=== PATIENT | female | born 2000 | race American Indian/Alaskan Native ===

== ENCOUNTER 2021-10-24 00:43 | Emergency (ER) | payer MEDICAID ==
[2021-10-24] MEDS ORDERED: SODIUM CHLORIDE 0.9% 1000 ML 1,000 ML IV ONE (01:47)
[2021-10-24] MEDS ORDERED: diphenhydrAMINE 50 MG/ML VIAL IM ONE (01:47)
[2021-10-24] MEDS ORDERED: HALOPERIDOL LACTATE 5 MG/1 ML INJ IM ONE (01:47)
[2021-10-24 02:19] LABS: Basophils % (Auto) 0.5 % (0.0-1.8); Eosinophils # (Auto) 0.1 K/mm3 (0.0-0.4); Eosinophils % (Auto) 0.7 % (0.0-4.3); Hemoglobin 13.4 gm/dl (10.1-14.3); Lymphocytes # (Auto) 1.3 K/mm3 (1.2-5.4); Lymphocytes % (Auto) 13.8 % (13.4-35.0); Mean Corpuscular HGB Conc 33 % (30-34); Mean Corpuscular Volume 84 fl (79-97); Monocytes # (Auto) 0.3 K/mm3 (0.0-0.8); Platelet Count 226 K/mm3 (140-440); Red Blood Count 4.85 M/mm3 (3.65-5.03); Red Cell Distribution Width 13.9 % (13.2-15.2)
--- NOTE | 2021-10-24 02:25 | Emergency Department Report ---
HPI - General Chief Complaint: Nausea/Vomiting/Diarrhea Time Seen by Provider: 10/24/21 01:32 - HPI HPI: 21-year-old female with history of depression, drug abuse, and IBS presents complaining of chronic abdominal pain and conditional suicidal ideation. The patient states "if someone cannot fix this I am going to kill myself" when I asked whether she had a desire to end her own life generally she said no. She also says she has had 6 hours of nausea and vomiting with multiple episodes. She states she has been struggling with chronic abdominal pain for several months. She was brought here from an outpatient psych facility for depression. Other than the nausea and vomiting she denies any associated headache, fever, vision change, neck pain/stiffness, chest pain, back pain, shortness of breath, cough, dysuria, or any other complaints. She said her last menstrual period was several months ago but says she cannot be . The patient is highly agitated and writhing during the exam and further details of the HPI are thus limited. ED Past Medical Hx - Past Medical History Previous Medical History?: Yes Additional medical history: Depression, drug abuse, IBS ED Review of Systems ROS: Stated complaint: NAUSEA/EMESIS Other details as noted in HPI Comment: All other systems reviewed and negative Constitutional: denies: chills, fever Eyes: denies: eye pain, vision change ENT: denies: throat pain, congestion Respiratory: denies: cough, shortness of breath Cardiovascular: denies: chest pain, palpitations Gastrointestinal: abdominal pain, nausea, vomiting. denies: diarrhea Genitourinary: denies: dysuria, frequency Musculoskeletal: denies: back pain, arthralgia Skin: denies: rash, lesions Neurological: denies: headache, weakness, numbness Psychiatric: depression, suicidal thoughts. denies: auditory hallucinations, visual hallucinations, homicidal thoughts Physical Exam - Physical Exam Vital Signs: Vital Signs 10/24/21 00:52 Temperature 98.6 F Pulse Rate 89 Respiratory 18 Rate Blood Pressure 130/74 [Left] O2 Sat by Pulse 99 Oximetry Physical Exam: GENERAL: Well developed and well nourished. Disheveled. In moderate distress. Writhing around during exam and highly agitated. HEAD: Normocephalic. No obvious signs of trauma. ENT: Slightly dry mucous membranes. EYES: Extraocular movements are intact. Pupils are equal round and reactive to light bilaterally NECK: Supple. Full ROM is intact. Trachea is midline. LUNGS: Nonlabored breathing. Equal chest rise bilaterally. Clear to auscultation bilaterally. CARDIOVASCULAR: Regular rate and rhythm. No murmurs or rubs. VASCULAR: Cap refill < 2 seconds ABDOMEN: Abdomen is soft and nondistended. There is diffuse tenderness to palpation of the right upper quadrant, right lower quadrant, epigastrium, left upper quadrant, and left lower quadrant without guarding or rebound tenderness. SKIN: Skin is warm and dry NEURO: Patient is awake, alert, and oriented. 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 No focal deficits. Normal motor and sensory exam throughout. Normal speech. MUSCULOSKELETAL: No obvious deformities. No significant tenderness. Normal ROM throughout. BACK/SPINE: No costovertebral angle tenderness. ED Course Vital Signs 10/24/21 00:52 Temperature 98.6 F Pulse Rate 89 Respiratory 18 Rate Blood Pressure 130/74 [Left] O2 Sat by Pulse 99 Oximetry ED Medical Decision Making - Lab Data Result diagrams: 10/24/21 01:57 10/24/21 01:57 Lab Results 10/24/21 10/24/21 10/24/21 Range/Units 01:57 01:57 01:57 WBC 9.5 (4.5-11.0) K/mm3 RBC 4.85 (3.65-5.03) M/mm3 Hgb 13.4 (10.1-14.3) gm/dl Hct 41.0 (30.3-42.9) % MCV 84 (79-97) fl MCH 28 (28-32) pg MCHC 33 (30-34) % RDW 13.9 (13.2-15.2) % Plt Count 226 (140-440) K/mm3 Lymph % (Auto) 13.8 (13.4-35.0) % Arthur % (Auto) 3.0 (0.0-7.3) % Eos % (Auto) 0.7 (0.0-4.3) % Baso % (Auto) 0.5 (0.0-1.8) % Lymph # (Auto) 1.3 (1.2-5.4) K/mm3 Arthur # (Auto) 0.3 (0.0-0.8) K/mm3 Eos # (Auto) 0.1 (0.0-0.4) K/mm3 Baso # (Auto) 0.0 (0.0-0.1) K/mm3 Seg Neutrophils % 82.0 H (40.0-70.0) % Seg Neutrophils # 7.8 H (1.8-7.7) K/mm3 Sodium 142 (137-145) mmol/L Potassium 3.6 (3.6-5.0) mmol/L Chloride 104.2 (98-107) mmol/L Carbon Dioxide 26 (22-30) mmol/L Anion Gap 15 mmol/L BUN 12 (7-17) mg/dL Creatinine 0.9 (0.6-1.2) mg/dL Estimated GFR > 60 ml/min BUN/Creatinine Ratio 13 % Glucose 145 H (65-100) mg/dL Calcium 9.4 (8.4-10.2) mg/dL Magnesium 2.00 (1.7-2.3) mg/dL Total Bilirubin 0.30 (0.1-1.2) mg/dL Direct Bilirubin < 0.2 (0-0.2) mg/dL Indirect Bilirubin 0.1 mg/dL AST 21 (5-40) units/L ALT 28 (7-56) units/L Alkaline Phosphatase 83 (35-129) units/L Ammonia 24.0 L (25-60) umol/L Total Protein 7.5 (6.3-8.2) g/dL Albumin 4.5 (3.9-5) g/dL Albumin/Globulin Ratio 1.5 % Lipase 31 (13-60) units/L HCG, Qual (Negative) Urine Color (Yellow) Urine Turbidity (Clear) Urine pH (5.0-7.0) Ur Specific [place] (1.003-1.030) Urine Protein (Negative) mg/dL Urine Glucose (UA) (Negative) mg/dL Urine Ketones (Negative) mg/dL Urine Blood (Negative) Urine Nitrite (Negative) Ur Reducing Substances Urine Bilirubin (Negative) Urine Ictotest Urine Urobilinogen (<2.0) mg/dL Ur Leukocyte Esterase (Negative) Urine WBC (Auto) (0.0-6.0) /HPF Urine RBC (Auto) (0.0-6.0) /HPF U Epithel Cells (Auto) (0-13.0) /HPF Urine Yeast (Budding) /HPF Salicylates (2.8-20.0) mg/dL Urine Opiates Screen Urine Methadone Screen Acetaminophen (10.0-30.0) ug/mL Ur Barbiturates Screen Ur Phencyclidine Scrn Ur Amphetamines Screen U Benzodiazepines Scrn Urine Cocaine Screen U Marijuana (THC) Screen Drugs of Abuse Note Plasma/Serum Alcohol (0-0.07) % 10/24/21 10/24/21 10/24/21 Range/Units 01:57 01:57 01:57 WBC (4.5-11.0) K/mm3 RBC (3.65-5.03) M/mm3 Hgb (10.1-14.3) gm/dl Hct (30.3-42.9) % MCV (79-97) fl MCH (28-32) pg MCHC (30-34) % RDW (13.2-15.2) % Plt Count (140-440) K/mm3 Lymph % (Auto) (13.4-35.0) % Arthur % (Auto) (0.0-7.3) % Eos % (Auto) (0.0-4.3) % Baso % (Auto) (0.0-1.8) % Lymph # (Auto) (1.2-5.4) K/mm3 Arthur # (Auto) (0.0-0.8) K/mm3 Eos # (Auto) (0.0-0.4) K/mm3 Baso # (Auto) (0.0-0.1) K/mm3 Seg Neutrophils % (40.0-70.0) % Seg Neutrophils # (1.8-7.7) K/mm3 Sodium (137-145) mmol/L Potassium (3.6-5.0) mmol/L Chloride (98-107) mmol/L Carbon Dioxide (22-30) mmol/L Anion Gap mmol/L BUN (7-17) mg/dL Creatinine (0.6-1.2) mg/dL Estimated GFR ml/min BUN/Creatinine Ratio % Glucose (65-100) mg/dL Calcium (8.4-10.2) mg/dL Magnesium (1.7-2.3) mg/dL Total Bilirubin (0.1-1.2) mg/dL Direct Bilirubin (0-0.2) mg/dL Indirect Bilirubin mg/dL AST (5-40) units/L ALT (7-56) units/L Alkaline Phosphatase (35-129) units/L Ammonia (25-60) umol/L Total Protein (6.3-8.2) g/dL Albumin (3.9-5) g/dL Albumin/Globulin Ratio % Lipase (13-60) units/L HCG, Qual (Negative) Urine Color (Yellow) Urine Turbidity (Clear) Urine pH (5.0-7.0) Ur Specific [place] (1.003-1.030) Urine Protein (Negative) mg/dL Urine Glucose (UA) (Negative) mg/dL Urine Ketones (Negative) mg/dL Urine Blood (Negative) Urine Nitrite (Negative) Ur Reducing Substances Urine Bilirubin (Negative) Urine Ictotest Urine Urobilinogen (<2.0) mg/dL Ur Leukocyte Esterase (Negative) Urine WBC (Auto) (0.0-6.0) /HPF Urine RBC (Auto) (0.0-6.0) /HPF U Epithel Cells (Auto) (0-13.0) /HPF Urine Yeast (Budding) /HPF Salicylates < 0.3 L (2.8-20.0) mg/dL Urine Opiates Screen Urine Methadone Screen Acetaminophen 5.0 L (10.0-30.0) ug/mL Ur Barbiturates Screen Ur Phencyclidine Scrn Ur Amphetamines Screen U Benzodiazepines Scrn Urine Cocaine Screen U Marijuana (THC) Screen Drugs of Abuse Note Plasma/Serum Alcohol < 0.01 (0-0.07) % 10/24/21 10/24/21 10/24/21 Range/Units 01:57 03:01 03:01 WBC (4.5-11.0) K/mm3 RBC (3.65-5.03) M/mm3 Hgb (10.1-14.3) gm/dl Hct (30.3-42.9) % MCV (79-97) fl MCH (28-32) pg MCHC (30-34) % RDW (13.2-15.2) % Plt Count (140-440) K/mm3 Lymph % (Auto) (13.4-35.0) % Arthur % (Auto) (0.0-7.3) % Eos % (Auto) (0.0-4.3) % Baso % (Auto) (0.0-1.8) % Lymph # (Auto) (1.2-5.4) K/mm3 Arthur # (Auto) (0.0-0.8) K/mm3 Eos # (Auto) (0.0-0.4) K/mm3 Baso # (Auto) (0.0-0.1) K/mm3 Seg Neutrophils % (40.0-70.0) % Seg Neutrophils # (1.8-7.7) K/mm3 Sodium (137-145) mmol/L Potassium (3.6-5.0) mmol/L Chloride (98-107) mmol/L Carbon Dioxide (22-30) mmol/L Anion Gap mmol/L BUN (7-17) mg/dL Creatinine (0.6-1.2) mg/dL Estimated GFR ml/min BUN/Creatinine Ratio % Glucose (65-100) mg/dL Calcium (8.4-10.2) mg/dL Magnesium (1.7-2.3) mg/dL Total Bilirubin (0.1-1.2) mg/dL Direct Bilirubin (0-0.2) mg/dL Indirect Bilirubin mg/dL AST (5-40) units/L ALT (7-56) units/L Alkaline Phosphatase (35-129) units/L Ammonia (25-60) umol/L Total Protein (6.3-8.2) g/dL Albumin (3.9-5) g/dL Albumin/Globulin Ratio % Lipase (13-60) units/L HCG, Qual Negative (Negative) Urine Color Yellow (Yellow) Urine Turbidity Turbid (Clear) Urine pH 9.0 H (5.0-7.0) Ur Specific [place] 1.015 (1.003-1.030) Urine Protein <15 mg/dl (Negative) mg/dL Urine Glucose (UA) Neg (Negative) mg/dL Urine Ketones Neg (Negative) mg/dL Urine Blood Neg (Negative) Urine Nitrite Neg (Negative) Ur Reducing Substances Not Reportable Urine Bilirubin Neg (Negative) Urine Ictotest Not Reportable Urine Urobilinogen < 2.0 (<2.0) mg/dL Ur Leukocyte Esterase Neg (Negative) Urine WBC (Auto) 3.0 (0.0-6.0) /HPF Urine RBC (Auto) 6.0 (0.0-6.0) /HPF U Epithel Cells (Auto) 12.0 (0-13.0) /HPF Urine Yeast (Budding) 3+ /HPF Salicylates (2.8-20.0) mg/dL Urine Opiates Screen Presumptive negative Urine Methadone Screen Presumptive negative Acetaminophen (10.0-30.0) ug/mL Ur Barbiturates Screen Presumptive negative Ur Phencyclidine Scrn Presumptive negative Ur Amphetamines Screen Presumptive negative U Benzodiazepines Scrn Presumptive positive Urine Cocaine Screen Presumptive negative U Marijuana (THC) Screen Presumptive positive Drugs of Abuse Note Disclamer Plasma/Serum Alcohol (0-0.07) % - Medical Decision Making 21-year-old female with reported history of IBS/chronic abdominal pain and depression here with 6 hours of nausea/vomiting, acute on chronic abdominal pain, and conditional suicidal ideation. The patient states that if her pain and nausea cannot be fixed she will kill herself. She is highly agitated and writhing around. He appears disheveled and with dry mucous membranes. She denies HI and denies auditory or visual hallucinations. She is afebrile and with normal vital signs. On physical examination she has diffuse tenderness to palpation throughout all quadrants of the abdomen without guarding or rebound. She has no CVA tenderness. She has a nonfocal neurologic exam. Nonetheless, I will place an ED hold given her conditional suicidality so that she will be evaluated by the mental health/psychiatry team. I have ordered a full set of la bs for broad work-up. We will give 1 L of IV fluids. Given the patient's severe agitation and writhing in her abdominal pain with nausea vomiting we will give Haldol and Benadryl given that it has therapeutic potential to treat both abdominal pain and nausea as well as psychosis. Will reassess. I asked the charge nurse to move the patient to the medical side of the ER for her work-up. Labs reveal no significant leukocytosis or anemia. Kidney function is normal and there are no significant electrolyte abnormalities with exception of very mild hypokalemia of 3.6. We will replete her potassium. Urinalysis is negative. is negative. UDS is positive for benzodiazepines and marijuana. The patient's agitation and writhing improved after Haldol but she continued to drink water while dry heaving. She was given a dose of Zofran On repeat assessment after Zofran, the patient is now resting comfortably in the bed. She reports that all of her abdominal symptoms including the nausea have resolved. On repeat exam she has no abdominal tenderness at this time. I will allow the mental health/psychiatry team to complete the evaluation. She is medically clear for psychiatric evaluation and placement. The patient was seen by the psychiatry/mental health team who recommended discharge. Critical care attestation.: If time is entered above; I have spent that time in minutes in the direct care of this critically ill patient, excluding procedure time. ED Disposition Clinical Impression: Nausea & vomiting, Suicidal ideation, Candiduria Disposition: 01 HOME / SELF CARE / HOMELESS Is pt being admited?: No Condition: Stable Instructions: Suicidal Feelings: How to Help Yourself Referrals: PRIMARY CARE [Primary Care Provider] - 3-5 Days
[2021-10-24 02:57] LABS: Alanine Aminotransferase 28 units/L (7-56); Albumin 4.5 g/dL (3.9-5); BUN/Creatinine Ratio 13; Blood Urea Nitrogen 12 mg/dL (7-17); Calcium 9.4 mg/dL (8.4-10.2); Hemolysis Index 3
[2021-10-24 03:04] LABS: Bilirubin,Direct < 0.2 mg/dL (0-0.2)
[2021-10-24 03:24] LABS: Bilirubin,Urine NEG (Negative); Blood,Urine NEG (Negative); Color,Urine Yellow (Yellow); Protein,Urine <15 mg/dL mg/dL (Negative); Urobilinogen,Urine < 2.0 mg/dL (<2.0)
[2021-10-24 03:47] LABS: Amphetamine Screen,Urine PRESUMPTIVE NEGATIVE; Benzodiazepines Screen,Urine PRESUMPTIVE POSITIVE; Cannabinoid Screen,Urine PRESUMPTIVE POSITIVE; Cocaine Screen,Urine PRESUMPTIVE NEGATIVE; Methadone Screen,Urine PRESUMPTIVE NEGATIVE; Opiate Screen,Urine PRESUMPTIVE NEGATIVE
[2021-10-24] MEDS ORDERED: ONDANSETRON 4 MG ODT TAB PO ONE (05:28)
--- NOTE | 2021-10-24 09:18 | Consultation ---
History of Present Illness - Reason for Consult Consult date: 10/24/21 Reason for consult: SI due to pain - History of Present Psychiatric Illness The patient was seen today. She says she came to the hospital for stomach pains. She is calm and cooperative. The patient says a person at her program called the ambulance malenaausae of her pain. She says "I told them I would kill myself if they didn't help me." The patient says "I have an addiction to fentanyl pills." She says "I was in pain but I'm not suicidal. I need pain meds." The patient is asking when can she leave. She says she takes suboxone. The patient says she cut herself in the past because she couldn't get pain meds, she says "but I'm not suicidal, I just have an addiction. She denies any hallucinations of any kind. She denies being on any psych meds, despite having a history of depression. She says she lives with her grandparents. The patient says she is single and unemployed. PAST PSYCHIATRIC HISTORY Diagnoses: Depression Suicide attempts or Self-harm behavior: Yes Prior psychiatric hospitalizations: Denies Substance Abuse history: Fentanyl Previous psychiatric medications tried: Denies Outpatient treatment: Denies PAST MEDICAL HISTORY: Family Psychiatric History: Not available SOCIAL HISTORY Marital Status: Single Living Arrangements: Lives with grandparents Employment Status: Unemployed Access to guns/weapons: Denies Education: History of Abuse: None reported Legal History: None reported REVIEW OF SYSTEMS Constitutional: Negative for weight loss ENT: Negative for stridor Respiratory: Negative for cough or hemoptysis All other systems reviewed and are negative MENTAL STATUS EXAMINATION General Appearance and Behavior: Age appropriate, good hygiene, wearing appropriate clothes, good eye contact, cooperative polite with questioning. Cooperation: Participating Psychomotor Behavior: abnormal Mood: anxious/ agitated Affect and affective range: congruent with mood Thought Process: goal directed Thought Content: None Speech: Normal volume, Regular rate and rhythm Suicidal Ideation: Denies Homicidal Ideation: Denies Hallucinations: Denies Impulse Control: Unimpaired Insight and Judgment: Limited insight and judgment Memory: Normal Attention: Attentive Orientation: Alert, oriented Assessment and Plan (1) Opioid Dependence RECOMMENDATIONS No meds ordered at this time The patient should continue addiction treatment Medical: per primary Disposition: Do not recommend acute psychiatric inpatient treatment. The patient understands if SI return she should seek immediate assistance Dairy Tester to give all necessary resources, and further discuss safety plan The patient to follow up with outpatient psych in 7 to 14 days upon discharge Will sign off. Thanks Case staffed with Dr. Awan Medications and Allergies Allergies Allergy/AdvReac Type Severity Reaction Status Date / Time No Known Allergies Allergy Verified 10/24/21 00:52 Mental Status Exam - Vital signs Last Vital Signs Temp 98.3 F 10/24/21 03:03 Pulse 90 10/24/21 03:03 Resp 18 10/24/21 03:03 BP 159/99 10/24/21 03:03 Pulse Ox 98 10/24/21 03:03 Results Result Diagrams: 10/24/21 01:57 10/24/21 01:57 Abnormal lab results 10/24/21 10/24/21 10/24/21 Range/Units 01:57 01:57 01:57 Seg Neutrophils % 82.0 H (40.0-70.0) % Seg Neutrophils # 7.8 H (1.8-7.7) K/mm3 Glucose 145 H (65-100) mg/dL Ammonia 24.0 L (25-60) umol/L Urine pH (5.0-7.0) Salicylates (2.8-20.0) mg/dL Acetaminophen (10.0-30.0) ug/mL 10/24/21 10/24/21 10/24/21 Range/Units 01:57 01:57 03:01 Seg Neutrophils % (40.0-70.0) % Seg Neutrophils # (1.8-7.7) K/mm3 Glucose (65-100) mg/dL Ammonia (25-60) umol/L Urine pH 9.0 H (5.0-7.0) Salicylates < 0.3 L (2.8-20.0) mg/dL Acetaminophen 5.0 L (10.0-30.0) ug/mL All other labs normal.
[2021-10-24 10:38] VITALS: BP 141/92
[2021-10-24] MEDS ORDERED: FLUCONAZOLE 100 MG TAB PO ONE (12:00)
[2021-10-24] MEDS ORDERED: FLUCONAZOLE 200 MG TAB PO SCH (12:00)
== END 2021-10-24 12:07 | disposition home or self-care (01) ==
LOC: ED 00:43
DX: R11.2 Nausea with vomiting, unspecified (principal); R45.851 Suicidal ideations; R10.84 Generalized abdominal pain; Z79.899 Other long term (current) drug therapy
CPT/HCPCS: 36415; 80048; 80076; 80307; 81001; 82140; 83690; 83735; 84703; 85025; 87086; 96372; 99284; J1200; J1630; 80320; J3490; G0480; Q0162